=== PATIENT | female | born 1940 | race American Indian/Alaskan Native ===

== ENCOUNTER 2017-04-05 21:30 | Emergency (ER) | payer MEDICARE, MEDICAID ==
[2017-04-05 21:35] VITALS: BP 151/99; PULSE 66; RESP 16; TEMP 99.2; O2SAT 98
[2017-04-05 23:02] LABS: BLOOD UREA NITROGEN 11 mg/dl (7-17); CALCIUM 8.9 mg/dL (8.4-10.2); GFR AFRICAN-AMERICAN > 60; GFR NON-AFRICAN AMERICAN > 60
[2017-04-05 23:03] LABS: BASO % 0.2 % (0.0-2.0); EOS % 0.5 % (0.0-4.0); HEMOGLOBIN 13.7 g/dL (12.0-16.0); LYMPH # 0.4 K/uL (1.0-4.3); LYMPH % 9.9 % (20.0-40.0); MEAN CORPUSCULAR HEMOGLOBIN 27.5 pg (27.0-31.0); MEAN PLATELET VOLUME 6.4 fl (7.2-11.7); MONO % 0.6 % (0.0-10.0); NEUT # 3.5 K/uL (1.8-7.0); NEUT % 88.8 % (50.0-75.0); NRBC % 0.2 % (0.0-0.0); PLATELET COUNT 210 K/uL (130-400); RBC 4.97 Mil/uL (3.80-5.20); RED CELL DISTRIBUTION WIDTH 13.6 % (11.5-14.5); WHITE BLOOD COUNT 3.9 K/uL (4.8-10.8)
--- NOTE | 2017-04-05 23:43 | ED PDOC ---
HPI: Allergic Reaction Time Seen by Provider: 04/05/17 21:54 Chief Complaint (Nursing): Allergic Reaction Chief Complaint (Provider): Allergic Reaction History Per: Patient History/Exam Limitations: no limitations Onset/Duration Of Symptoms: Hrs Additional Complaint(s): Mary Jane Boo is a 76 year old female with a history of asthma that presents to the ED with a chief complaint of uncontrollable shaking. Patient reports that over the last two days she has been consuming more chocolate than she's ever eaten, and that after consuming her last piece of chocolate today she began to experience an episode of uncontrollable shaking to her extremities. Patient reports that she had associated chest pain and shortness of breath at the beginning of the episode that resolved spontaneously, and states that she was awake. She denies any urinary of bowel incontinence. Patient currently has no complaints in ED. Past Medical History Reviewed: Historical Data, Nursing Documentation, Vital Signs Vital Signs: Last Vital Signs Temp 99.2 F 04/05/17 21:32 Pulse 66 04/05/17 21:32 Resp 16 04/05/17 21:32 BP 151/99 H 04/05/17 21:32 Pulse Ox 98 04/05/17 21:32 - Medical History PMH: Asthma, HTN, Hypercholesterolemia (no medications), Malignancy (Uterine Cancer 6 years ago, currently in remission with no medications) - Family History Family History: States: Unknown Family Hx - Home Medications Home Medications: Ambulatory Orders Medication Instructions Recorded Albuterol 0.5% [Albuterol 0.5% 3 ml IH Q4 PRN #0 neb 02/25/15 Inhal Janette (2.5 mg/0.5 ml) UD] Albuterol Sulfate [Proair Hfa] 0.09 mg IH Q6H PRN #2 inh 02/25/15 Azithromycin [Zithromax Z-Candelario] 250 mg PO DAILY 5 Days tab 02/25/15 Prednisone 20 mg PO BID #10 tab 02/25/15 - Allergies Allergies/Adverse Reactions: Allergies Allergy/AdvReac Type Severity Reaction Status Date / Time Penicillins Allergy RASH Verified 04/05/17 21:36 Review of Systems ROS Statement: Except As Marked, All Systems Reviewed And Found Negative Constitutional: Positive for: Other (Shaking to extremities) Cardiovascular: Positive for: Chest Pain Respiratory: Positive for: Shortness of Breath Genitourinary Female: Negative for: Incontinence Physical Exam - Reviewed Nursing Documentation Reviewed: Yes Vital Signs Reviewed: Yes - Physical Exam Appears: Positive for: Non-toxic, No Acute Distress Head Exam: Positive for: ATRAUMATIC, NORMOCEPHALIC Skin: Positive for: Normal Color, Warm Eye Exam: Positive for: Normal appearance, EOMI, PERRL Neck: Positive for: Normal, Supple Cardiovascular/Chest: Positive for: Regular Rate, Rhythm. Negative for: Murmur Respiratory: Positive for: Normal Breath Sounds. Negative for: Wheezing Gastrointestinal/Abdominal: Positive for: Normal Exam, Soft. Negative for: Tenderness Back: Positive for: Normal Inspection. Negative for: L CVA Tenderness, R CVA Tenderness Extremity: Positive for: Normal ROM. Negative for: Deformity, Swelling Neurologic/Psych: Positive for: Alert, Oriented. Negative for: Motor/Sensory Deficits - Laboratory Results Result Diagrams: 04/05/17 22:45 04/05/17 22:45 - ECG O2 Sat by Pulse Oximetry: 98 (RA) Pulse Ox Interpretation: Normal Disposition - Clinical Impression Clinical Impression: Adverse reaction to food - Disposition Disposition Time: 02:00 Condition: IMPROVED Instructions: Food Allergy Forms: e[employer] (Chinese) Medical Decision Making Medical Decision Making: Impression: Possible Reaction to Excessive Sugar Consumption Plan: * Chest X-Ray * EKG * CBC * Reevaluation Chest X-Ray FINDINGS: Tubes and catheters: There is a right jugular catheter, tip in the low superior vena cava Heart, mediastinum and britton: The heart is enlarged. Aorta is uncoiled. Hilar contours are unremarkable Vascularity: Pulmonary vascularity is normal. Lungs: There is mild prominence of interstitial markings. There is no focal consolidation. Pleural spaces: There no effusions Bony structures: Bony structures are osteopenic with degenerative change. IMPRESSION: Cardiomegaly, no focal consolidation; central line 2:11 Upon provider reevaluation patient is feeling better, is medically stable, and requires no further treatment in the ED at this time. Counseling was provided and all questions were answered regarding diagnosis. There is agreement to discharge plan. Return if symptoms persist or worsen. Patient stable for discharge home. Clinical Impression: Adverse Reaction to Food Scribe Attestation: Documented by Laine Booth, acting as a scribe for Maciej Lincoln MD. Provider Scribe Attestation: All medical record entries made by the Scribe were at my direction and personally dictated by me. I have reviewed the chart and agree that the record accurately reflects my personal performance of the history, physical exam, medical decision making, and the department course for this patient. I have also personally directed, reviewed, and agree with the discharge instructions and disposition.
[2017-04-06 00:34] LABS: EOSINOPHIL 2 % (0-7); LYMPHOCYTE 14 % (20-50); MONOCYTE 3 % (0-10); NEUTROPHIL 80 % (42-75); REACTIVE LYMPHOCYTES 1 % (0-0); TOTAL CELLS COUNTED 100
[2017-04-06 00:35] LABS: ANISOCYTOSIS SLIGHT; HYPOCHROMIC SLIGHT; PLATELET ESTIMATE NORMAL (NORMAL); STOMATOCYTES SLIGHT
--- NOTE | 2017-04-06 01:30 | RAD ---
EXAM: XR Chest, 2 Views EXAM DATE/TIME: 04/05/2017 10:16 PM CLINICAL HISTORY: 76 years old, female; Signs and symptoms; Shortness of breath; Additional info: Resolved cp, SOB, shaking TECHNIQUE: Frontal and lateral views of the chest. COMPARISON: CR - CHEST PORTABLE 2015-02-25 14:27 FINDINGS: Tubes and catheters: There is a right jugular catheter, tip in the low superior vena cava Heart, mediastinum and britton: The heart is enlarged. Aorta is uncoiled. Hilar contours are unremarkable Vascularity: Pulmonary vascularity is normal. Lungs: There is mild prominence of interstitial markings. There is no focal consolidation. Pleural spaces: There no effusions Bony structures: Bony structures are osteopenic with degenerative change. IMPRESSION: Cardiomegaly, no focal consolidation; central line
--- NOTE | 2017-04-06 22:10 | CARD ---
APPROVED REPORT EKG Measurement Heart [id number] <Conclusion> Normal sinus rhythm Left axis deviation Abnormal ECG
== END 2017-04-06 02:45 | disposition home or self-care (01) ==
LOC: H.ER 21:30
DX: T78.1XXA Other adverse food reactions, not elsewhere classified, initial encounter (principal); E78.00 Pure hypercholesterolemia, unspecified; I10 Essential (primary) hypertension; J45.909 Unspecified asthma, uncomplicated; Z88.0 Allergy status to penicillin

== ENCOUNTER 2017-06-18 20:48 | Emergency (ER) | payer MEDICARE, MEDICAID ==
[2017-06-18 20:55] VITALS: TEMP 98.2
[2017-06-18 21:39] VITALS: RESP 18
[2017-06-18] MEDS ORDERED: Albuterol-Ipratrop 3 mg / 0.5 (3 ml) UD INH STA (21:53)
[2017-06-18] MEDS ORDERED: Albuterol-Ipratrop 3 mg / 0.5 (3 ml) UD ONE (22:10)
[2017-06-18 22:28] VITALS: BP 146/92; PULSE 76; O2SAT 100
[2017-06-18 22:33] LABS: BASO % 0.5 % (0.0-2.0); EOS # 0.3 K/uL (0.0-0.7); EOS % 5.7 % (0.0-4.0); HEMOGLOBIN 12.9 g/dL (12.0-16.0); LYMPH # 1.1 K/uL (1.0-4.3); MEAN CELL VOLUME 83.3 fl (81.0-99.0); MEAN CORPUSCULAR HEMOGLOBIN 26.9 pg (27.0-31.0); MEAN CORPUSCULAR HGB CONC 32.3 g/dL (33.0-37.0); MEAN PLATELET VOLUME 6.6 fl (7.2-11.7); MONO # 0.1 K/uL (0.0-0.8); MONO % 2.8 % (0.0-10.0); NEUT # 2.9 K/uL (1.8-7.0); RBC 4.8 Mil/uL (3.80-5.20); RED CELL DISTRIBUTION WIDTH 13.9 % (11.5-14.5); WHITE BLOOD COUNT 4.4 K/uL (4.8-10.8)
--- NOTE | 2017-06-18 22:39 | ED PDOC ---
HPI: SOB/CHF/COPD Time Seen by Provider: 06/18/17 21:15 Chief Complaint (Nursing): Respiratory Distress Chief Complaint (Provider): Cough, Wheezing and Shortness of breath History Per: Patient History/Exam Limitations: no limitations Onset/Duration Of Symptoms: Days (x1) Current Symptoms Are (Timing): Still Present Associated Symptoms: Fever, Chills. denies: Chest Pain, Dizziness, Light- headedness Additional Complaint(s): 77 year old female presents to the emergency department with wheezing, cough and shortness of breath which began yesterday. Patient also notes some fever and chills. Denies chest pain. PAtient states that in the ambulance prior to ED arrival she was given solumedral and a duoneb which gave relief of her symptoms. Patient denies ever being admitted to the ICU and also ever being intubated. PMD: Dustin Sanches Past Medical History Reviewed: Historical Data, Nursing Documentation Vital Signs: Last Vital Signs Temp 98.2 F 06/18/17 20:51 Pulse 76 06/19/17 00:20 Resp 18 06/18/17 22:27 BP 146/92 H 06/18/17 22:27 Pulse Ox 100 06/19/17 00:20 - Medical History PMH: Arthritis, Asthma, HTN, Hypercholesterolemia (no medications), Malignancy ( Uterine Cancer 6 years ago, currently in remission with no medications) - Surgical History Surgical History: No Surg Hx - Family History Family History: States: Unknown Family Hx - Social History Alcohol: None Drugs: Denies - Home Medications Home Medications: Ambulatory Orders Medication Instructions Recorded Albuterol 0.5% [Albuterol 0.5% 3 ml IH Q4 PRN #0 neb 02/25/15 Inhal Janette (2.5 mg/0.5 ml) UD] Azithromycin [Zithromax Z-Candelario] 250 mg PO DAILY 5 Days tab 02/25/15 Prednisone 20 mg PO BID #10 tab 02/25/15 Albuterol Sulfate [Proair Hfa] 0.09 mg IH Q6H PRN #1 inh 06/19/17 Fluticasone/Salmeterol 250/50 1 puff IH Q12 #1 inh 06/19/17 [Advair Diskus] Prednisone 50 mg PO DAILY #5 tab 06/19/17 - Allergies Allergies/Adverse Reactions: Allergies Allergy/AdvReac Type Severity Reaction Status Date / Time Penicillins Allergy unknown Verified 06/18/17 20:51 childhood allergy Milk Containing Products AdvReac abd Verified 06/18/17 20:51 problems Wells Criteria for PE - Wells Criteria for Pulmonary Embolism Clinical Signs and Symptoms of DVT: No P.E is #1 Diagnosis, or Equally Likely: No Heart Rate >100: No Immobilization at least 3 days;Surgery previous 4 weeks: No Previous, objectively diagnosed PE or DVT: No Hemoptysis: No Malignancy w/treatment within 6 months, or palliative: No Total Score: 0 Review of Systems ROS Statement: Except As Marked, All Systems Reviewed And Found Negative Constitutional: Positive for: Fever, Chills Cardiovascular: Negative for: Chest Pain Respiratory: Positive for: Cough, Shortness of Breath, Wheezing Physical Exam - Reviewed Nursing Documentation Reviewed: Yes Vital Signs Reviewed: Yes - Physical Exam Appears: Positive for: Non-toxic, No Acute Distress Head Exam: Positive for: ATRAUMATIC, NORMAL INSPECTION, NORMOCEPHALIC Skin: Positive for: Normal Color, Warm, Dry. Negative for: Rash Eye Exam: Positive for: Normal appearance, EOMI, PERRL. Negative for: Nystagmus ENT: Positive for: Normal ENT Inspection. Negative for: Nasal Congestion, Tonsillar Swelling Neck: Positive for: Normal, Painless ROM, Supple Cardiovascular/Chest: Positive for: Regular Rate, Rhythm, Chest Non Tender Respiratory: Positive for: Wheezing (mild wheezing b/l no respiratory distress) . Negative for: Rales, Rhonchi, Respiratory Distress Gastrointestinal/Abdominal: Positive for: Normal Exam, Bowel Sounds, Soft. Negative for: Guarding, Rebound Back: Positive for: Normal Inspection. Negative for: L CVA Tenderness, R CVA Tenderness Extremity: Positive for: Normal ROM. Negative for: Tenderness, Deformity, Swelling Neurologic/Psych: Positive for: Alert, Oriented. Negative for: Gait - Laboratory Results Result Diagrams: 06/18/17 22:25 06/18/17 22:25 - ECG ECG: Positive for: Interpreted By Me, Viewed By Me ECG Rhythm: Positive for: Normal QRS, Normal ST Segment, Sinus Rhythm. Negative for: ST/T Changes Rate: 76 O2 Sat by Pulse Oximetry: 100 (RA) Pulse Ox Interpretation: Normal - Radiology X-Ray: Interpreted by Me, Viewed By Me X-Ray Interpretation: No Acute Disease - Progress Re-evaluation Time: 00:17 Condition: Re-examined, Improved Nebulizer Treatments/Peak Flow - Duonebs Number of Bronchodilator Doses given?: 1 - Steroid Treatment Steroid: IV - Clinical Response Clinical Response: Improved Medical Decision Making Medical Decision Makin Initial Impression 77 year old female presenting with wheezing and shortness of breath Differential: Asthma exacerbation r/o Pneumonia and CHF Initial Plan: * EKG * B-type Natriuretic * BMP * Troponin * CBC * CXR * Albuterol 3mL INH * Peak Flow Pre/Post * Reevaluation ------ Documented by Hien Thakkar acting as a scribe for Dawson Heck MD. All medical record entries made by the Scribe were at my direction and personally dictated by me. I have reviewed the chart and agree that the record accurately reflects my personal performance of the history, physical exam, medical decision making, and the department course for this patient. I have also personally directed, reviewed, and agree with the discharge instructions and disposition. Disposition - Clinical Impression Clinical Impression: Asthma exacerbation - Patient ED Disposition Is Patient to be Admitted: No Doctor Will See Patient In The: Office Counseled Patient/Family Regarding: Studies Performed, Diagnosis, Need For Followup - Disposition Referrals: [facility] [Outside] Disposition: Routine/Home Disposition Time: 00:20 Condition: GOOD Additional Instructions: Follow up with your PCP in 2-3 days. Return for worsening. Take your medications as instructed. Prescriptions: Albuterol Sulfate [Proair Hfa] 0.09 mg IH Q6H PRN #1 inh PRN Reason: Wheezing Fluticasone/Salmeterol 250/50 [Advair Diskus] 1 puff IH Q12 #1 inh Prednisone 50 mg PO DAILY #5 tab Instructions: Asthma, Adult (DC)
[2017-06-18 23:03] LABS: GFR AFRICAN-AMERICAN > 60; GFR NON-AFRICAN AMERICAN > 60
[2017-06-18 23:15] LABS: B-TYPE NATRIURETIC PEPTIDE 116 pg/ml (0-900)
[2017-06-18 23:17] LABS: BLOOD UREA NITROGEN 8 mg/dl (7-17)
--- NOTE | 2017-06-19 09:03 | RAD ---
PROCEDURE: CHEST RADIOGRAPH, 1 VIEW HISTORY: dyspnea COMPARISON: Chest radiograph dated 04/05/2017. FINDINGS: LUNGS: Clear. PLEURA: No pneumothorax or pleural fluid seen. CARDIOVASCULAR: Atherosclerotic aortic calcifications. Cardiomediastinal silhouette stably enlarged. OSSEOUS STRUCTURES: Unchanged. VISUALIZED UPPER ABDOMEN: Normal. OTHER FINDINGS: Right internal jugular access chest port, unchanged. IMPRESSION: No active disease.
--- NOTE | 2017-06-19 15:18 | CARD ---
APPROVED REPORT EKG Measurement Heart [id number] <Conclusion> Normal sinus rhythm Left axis deviation Abnormal ECG
== END 2017-06-19 00:42 | disposition home or self-care (01) ==
LOC: H.ER 20:48
DX: J45.901 Unspecified asthma with (acute) exacerbation (principal); E78.00 Pure hypercholesterolemia, unspecified; I10 Essential (primary) hypertension; Z85.42 Personal history of malignant neoplasm of other parts of uterus; Z88.0 Allergy status to penicillin

== ENCOUNTER 2017-07-13 10:25 | Emergency (ER) | payer MEDICARE, MEDICAID ==
[2017-07-13 10:30] VITALS: BMI 37.3
[2017-07-13 10:31] VITALS: O2SAT 100
[2017-07-13] MEDS ORDERED: Tdap Vaccine 0.5 ml Vial (10-64 yrs) IM ONE ×2 (11:08→11:14)
[2017-07-13] MEDS ORDERED: Albuterol-Ipratrop 3 mg / 0.5 (3 ml) UD INH STA (11:08)
[2017-07-13] MEDS ORDERED: Lidocaine 1% w Epi 1:100,000 Inj INFIL ONE (11:08)
--- NOTE | 2017-07-13 11:08 | ED PDOC ---
HPI: General Adult Time Seen by Provider: 07/13/17 11:04 Chief Complaint (Nursing): Trauma Chief Complaint (Provider): head injury History Per: Patient (77 y/o female h/o brain abscess/kidney abscess here for evaluation of trip and fall with subsequent head injury. Patient states her right foot became numb and she tripped over it. Deneis any weakness in arms or legs. Notes that foot numbness has occurred on and off due to lower leg edema x 2 years. Denies any LOC at time of injury but feels she was disorientd for short period. Patient states she was placed on Bactrim and is currently still taking these medications for pulmonary infection. Is on advair as well for asthma.) Past Medical History Reviewed: Historical Data, Nursing Documentation, Vital Signs Vital Signs: Last Vital Signs Temp 98.1 F 07/13/17 10:30 Pulse 68 07/13/17 10:30 Resp 17 07/13/17 10:30 BP 116/74 07/13/17 10:30 Pulse Ox 100 07/13/17 13:29 - Medical History PMH: Arthritis, Asthma, HTN, Hypercholesterolemia (no medications), Malignancy ( Uterine Cancer 6 years ago, currently in remission with no medications) - Family History Family History: States: Unknown Family Hx - Home Medications Home Medications: Ambulatory Orders Medication Instructions Recorded Albuterol Sulfate [Proair Hfa] 0.09 mg IH Q6H PRN #1 inh 06/19/17 Fluticasone/Salmeterol 250/50 1 puff IH Q12 #1 inh 06/19/17 [Advair Diskus] Albuterol 0.083% [Albuterol 0.083% 2.5 mg IH Q8 PRN #100 neb 07/13/17 Inhal Janette (2.5 mg/3 ml) UD] predniSONE [predniSONE Tab] 2 tab PO DAILY #10 tab 07/13/17 - Allergies Allergies/Adverse Reactions: Allergies Allergy/AdvReac Type Severity Reaction Status Date / Time Penicillins Allergy unknown Verified 06/18/17 20:51 childhood allergy Milk Containing Products AdvReac abd Verified 06/18/17 20:51 problems Review of Systems ROS Statement: Except As Marked, All Systems Reviewed And Found Negative Physical Exam - Reviewed Nursing Documentation Reviewed: Yes Vital Signs Reviewed: Yes - Physical Exam Appears: Positive for: Well, Non-toxic, No Acute Distress Head Exam: Positive for: ATRAUMATIC, NORMAL INSPECTION, NORMOCEPHALIC Skin: Positive for: Normal Color, Warm, DRY Eye Exam: Positive for: EOMI, Normal appearance, PERRL ENT: Positive for: Normal ENT Inspection Neck: Positive for: Normal, Painless ROM Cardiovascular/Chest: Positive for: Regular Rate, Rhythm Respiratory: Positive for: Normal Breath Sounds, Wheezing Gastrointestinal/Abdominal: Positive for: Normal Exam, Soft Back: Positive for: Normal Inspection Extremity: Positive for: Normal ROM Neurologic/Psych: Positive for: Alert, Oriented - Laboratory Results Result Diagrams: 07/13/17 12:20 07/13/17 12:20 - ECG O2 Sat by Pulse Oximetry: 100 - Progress ED Course And Treament: EKG: NSR 65bpm; no ectopy no acute changes cxr: nad head ct: IMPRESSION: Limited age-related neuro degenerative findings in the brain, predominate the cerebrum. Exam is otherwise unremarkable. No intracranial hemorrhage or calvarial fracture. tdap 0.5 mll IM x 1 dose duoneb x 1 dose Re-evaluated. Clear lungs bilaterally. Disposition - Clinical Impression Clinical Impression: Head injury, Laceration, Asthma exacerbation - Patient ED Disposition Is Patient to be Admitted: No - Disposition Disposition: Routine/Home Disposition Time: 13:27 Condition: FAIR Additional Instructions: RETURN IN 7 DAYS FOR REMOVAL OF SUTURES Prescriptions: Albuterol 0.083% [Albuterol 0.083% Inhal Janette (2.5 mg/3 ml) UD] 2.5 mg IH Q8 PRN #100 neb PRN Reason: Shortness Of Breath predniSONE [predniSONE Tab] 2 tab PO DAILY #10 tab Instructions: Asthma, Adult (DC), Closed Head Injury, Laceration Repair With Stitches (DC) Forms: T[employer]ored Fit (French) Procedure: Wound Repair - Time Performed Time Performed: 13:23 - Time Out Time Out: Site verified - Consent Obtained Consent obtained: Verbal - Performed by Performed by: Mid-level Provider - Indications Indication(s):: Laceration - Location Location:: Left, Scalp Shape:: Linear Dimensions Length cm: 1.0cm Depth:: Epidermis - Anesthetic Technique Local/Regional Anesthetic:: Lidocaine 1% w/epi - Debris Debris:: None - Complexity Complexity:: Simple (one layer) (two 5-0 prolene sutures interrupted) - Muscle repiar layer closed with Muscle repair layer closed with:: Tetanus ordered - Patient tolerated procedure Patient Tolerated Procedure:: Well
[2017-07-13] MEDS ORDERED: Lidocaine 1% w Epi 1:100,000 Inj ONE (11:13)
[2017-07-13] MEDS ORDERED: Albuterol-Ipratrop 3 mg / 0.5 (3 ml) UD ONE (11:14)
[2017-07-13 12:34] LABS: BASO % 0.6 % (0.0-2.0); EOS # 0.3 K/uL (0.0-0.7); EOS % 6.9 % (0.0-4.0); HEMOGLOBIN 13.6 g/dL (12.0-16.0); LYMPH # 1.8 K/uL (1.0-4.3); LYMPH % 38.9 % (20.0-40.0); MEAN CELL VOLUME 83.2 fl (81.0-99.0); MEAN CORPUSCULAR HGB CONC 32.5 g/dL (33.0-37.0); MEAN PLATELET VOLUME 6.4 fl (7.2-11.7); MONO # 0.4 K/uL (0.0-0.8); MONO % 9.5 % (0.0-10.0); NEUT % 44.1 % (50.0-75.0); NRBC % 0.2 % (0.0-0.0); RBC 5.04 Mil/uL (3.80-5.20); RED CELL DISTRIBUTION WIDTH 14.5 % (11.5-14.5); WHITE BLOOD COUNT 4.6 K/uL (4.8-10.8)
--- NOTE | 2017-07-13 12:39 | CT ---
PROCEDURE: CT HEAD WITHOUT CONTRAST. HISTORY: head injury COMPARISON: None available. TECHNIQUE: Axial computed tomography images were obtained through the head/brain without intravenous contrast. Radiation dose: Total exam DLP = 927.37 mGy-cm. This CT exam was performed using one or more of the following dose reduction techniques: Automated exposure control, adjustment of the mA and/or kV according to patient size, and/or use of iterative reconstruction technique. FINDINGS: HEMORRHAGE: No intracranial hemorrhage. BRAIN: Good corticomedullary differentiation is seen. Mild diffuse expansion of the ventriculosulcal and cisternal spaces is appreciated with limited white matter lucency compatible with diffuse cerebral atrophy and chronic microangiopathy. No suspicious extra-axial fluid collection is identified and the midline brain anatomy appears grossly nonfocal as imaged. There is no mass effect throughout. VENTRICLES: Unremarkable. No hydrocephalus. CALVARIUM: No destructive bony lesion or displaced fracture identified including through the skullbase. PARANASAL SINUSES: Unremarkable as visualized. No significant inflammatory changes. MASTOID AIR CELLS: Unremarkable as visualized. No inflammatory changes. OTHER FINDINGS: None. IMPRESSION: Limited age-related neuro degenerative findings in the brain, predominate the cerebrum. Exam is otherwise unremarkable. No intracranial hemorrhage or calvarial fracture.
[2017-07-13 12:49] LABS: ALT/SGPT 21 U/L (9-52); AST/SGOT 19 U/L (14-36); BLOOD UREA NITROGEN 11 mg/dl (7-17); CALCIUM 9.3 mg/dL (8.4-10.2); GFR AFRICAN-AMERICAN 58; GFR NON-AFRICAN AMERICAN 48
[2017-07-13 12:57] LABS: B-TYPE NATRIURETIC PEPTIDE 40.6 pg/ml (0-900)
--- NOTE | 2017-07-13 13:22 | RAD ---
HISTORY: Fall, forehead laceration COMPARISON: Five hundred eighteen FINDINGS: LUNGS: No active pulmonary disease. PLEURA: No significant pleural effusion identified, no pneumothorax apparent. CARDIOVASCULAR: No radiographic findings to suggest acute or significant cardiovascular disease.Venous access catheter in stable, satisfactory position. OSSEOUS STRUCTURES: No significant abnormalities. VISUALIZED UPPER ABDOMEN: Normal. OTHER FINDINGS: None. IMPRESSION: No active disease. No significant interval change compared to the prior examination(s).
[2017-07-13 13:39] VITALS: BP 122/70; PULSE 71; RESP 18; TEMP 97.7
--- NOTE | 2017-07-13 17:07 | CARD ---
APPROVED REPORT EKG Measurement Heart [id number] <Conclusion> Normal sinus rhythm Left axis deviation Abnormal ECG
== END 2017-07-13 14:16 | disposition home or self-care (01) ==
LOC: H.ER 10:25
DX: S01.81XA Laceration without foreign body of other part of head, initial encounter (principal); S09.90XA Unspecified injury of head, initial encounter; W01.0XXA Fall on same level from slipping, tripping and stumbling without subsequent striking against object, initial encounter; Y92.89 Other specified places as the place of occurrence of the external cause; J45.901 Unspecified asthma with (acute) exacerbation; E78.00 Pure hypercholesterolemia, unspecified; I10 Essential (primary) hypertension; Z85.42 Personal history of malignant neoplasm of other parts of uterus; Z86.61 Personal history of infections of the central nervous system; Z88.0 Allergy status to penicillin